=== PATIENT | female | born 1955 | race Caucasian/White ===

== ENCOUNTER 2016-08-04 22:10 | Inpatient (IN) | payer MEDICAID ==
[~2016-08-04] VITALS: Ht 154.9 cm; Wt 62.8 kg
[2016-08-04] MEDS ORDERED: DEXTROSE (50%) 50ML SYRG IV PRN (22:45)
[2016-08-04] MEDS ORDERED: CLOPIDOGREL BISULFATE 75 MG TAB PO ONE (22:45)
[2016-08-04] MEDS ORDERED: MORPHINE SULF INJ 2 MG/ML SYRINGE 1ML IV PRN (22:45)
[2016-08-04] MEDS ORDERED: HYDROmorphone HCL 2 MG/ML VL IV PRN (22:45)
[2016-08-04] MEDS ORDERED: D5W/SOD CHL 0.45% 1,000 ML IV SCH (22:45)
[2016-08-04] MEDS ORDERED: NITROGLYCERIN 0.4 MG SL TAB SL PRN (22:45)
[2016-08-04 23:00] VITALS: BP 99/63
[2016-08-04 23:56] LABS: Urine RBC None Seen /hpf (0 - 4)
[2016-08-05 00:08] LABS: Urine Bilirubin Negative (Negative); Urine Blood Negative /uL (Negative); Urine Color Colorless (Yellow); Urine Glucose Normal (Normal); Urine Ketone Negative (Negative); Urine Nitrite Negative (Negative); Urine Squamous Epithelial Cell FEW /hpf (<5); Urine Urobilinogen Normal (Negative)
[2016-08-05] MEDS ORDERED: FENO145T20 PO (00:27)
[2016-08-05] MEDS ORDERED: NITR0.4S29 SL (00:27)
[2016-08-05] MEDS ORDERED: LOSA100T27 PO (00:27)
[2016-08-05] MEDS ORDERED: METF-314 PO (00:27)
[2016-08-05 05:19] VITALS: BP 134/69
[2016-08-05] MEDS: ACCU-CHEK COMFORT CURVE STRIP VI SCH ×4 (05:47→21:42)
[2016-08-05] MEDS: InsuLIN REG 1unit/0.01ml Soln (100units/ml) SC SCH ×4 (05:49→21:51)
[2016-08-05 06:04] LABS: INR 0.94 (0.9-1.15); Prothrombin Time 9.7 sec (9.37-12.3)
[2016-08-05 06:09] LABS: Basophils # (auto) 0 uL; Basophils % (auto) 0.5 % (0.0-2.0); Calcium 8.8 mg/dL (8.5-10.1); Eosinophils # (auto) 0.2 uL; Hematocrit 38.1 % (36.0-46.0); Hemoglobin 12.4 g/dL (12.2-16.2); Lymphocytes # (auto) 2.1 uL; Mean Corpuscular Hemoglobin 29.5 pg (28.0-32.0); Mean Corpuscular Hgb Conc. 32.4 g/dL (32.0-36.0); Monocytes # (auto) 0.8 uL; Monocytes % (auto) 9.7 % (0.0-12.0); Neutrophils # (auto) 5.1 uL; Neutrophils % (auto) 62.8 % (37.0-80.0); Platelet Count (auto) 265 10^3/uL (140-450); Potassium 3.9 mmol/L (3.5-5.1); Red Cell Distribution Width 12.5 % (11.6-16.0); White Blood Cell 8.2 10^3/uL (4.4-10.8)
[2016-08-05] MEDS: metFORMIN HYDROCHLORIDE 500 MG TAB PO SCH ×2 (06:18→17:24)
[2016-08-05] MEDS: LOSARTAN POTASSIUM 50 MG TAB PO SCH (09:40)
[2016-08-05] MEDS: METOPROLOL TARTRATE 25 MG TAB PO SCH ×2 (09:58→21:41)
[2016-08-05] MEDS: ENOXAPARIN SOD 60 MG/0.6 ML SYRINGE SC SCH ×2 (10:00→21:40)
[2016-08-05] MEDS: ASPirin-EC 325mg tab PO SCH (10:00)
[2016-08-05] MEDS ORDERED: LIDOCAINE 2%HCL (LOCAL ANESTH.) INJ 20ML MDV ONE (10:00)
[2016-08-05] MEDS ORDERED: IODIXANOL 320MG/ML 100ML BTL IV ONE ×2 (10:01→15:40)
[2016-08-05] MEDS ORDERED: MIDAZOLAM HCL 1MG/1ML-2 ML VIAL ONE (13:37)
[2016-08-05] MEDS ORDERED: SODIUM CHL 0.9% 0 ML ONE (13:38)
[2016-08-05] MEDS ORDERED: fentaNYL CITRATE 100 MCG/2 ML VL ONE (13:38)
[2016-08-05] MEDS ORDERED: ANGIOMAX 250 MG VIAL IV ONE ×2 (13:39→15:35)
[2016-08-05] MEDS ORDERED: IOHEXOL 350 MG/ML 100ML IJ ONE (15:06)
[2016-08-05] MEDS ORDERED: SODIUM CHL 0.9% 50 ML ONE ×2 (15:35)
[2016-08-05] MEDS ORDERED: EPTIFIBATIDE DRIP(0.75MG/ML) 0 ML IV ONE (15:56)
[2016-08-05] MEDS ORDERED: EPTIFIBATIDE INJ (2MG/ML) 10ML VIAL IV ONE (15:56)
[2016-08-05] MEDS ORDERED: PRASUGREL HCL 10 MG TAB ONE (15:58)
[2016-08-05] MEDS ORDERED: ONDANSETRON HCL 4 MG/2 ML VIAL ONE (16:06)
[2016-08-05] MEDS ORDERED: CLOPIDOGREL 300 MG TAB ONE (16:25)
[2016-08-05] MEDS ORDERED: ONDANSETRON HCL 4 MG/2 ML VIAL IV PRN (17:15)
[2016-08-05] MEDS ORDERED: CLOPIDOGREL 300 MG TAB PO ONE ×3 (17:15→18:30)
[2016-08-05] MEDS ORDERED: LABETALOL HCL 5 MG/ML 4ML SYRINGE IV PRN ×2 (18:00→21:00)
[2016-08-05] MEDS: HYDROcodone-ACET 5/325MG TAB PO PRN (18:05)
[2016-08-05] MEDS ORDERED: ACETAMINOPHEN 325 MG TAB PO PRN (21:00)
[2016-08-05 21:06] VITALS: BP 110/64
[2016-08-05] MEDS: SODIUM CHLORIDE 0.9% 1,000 ML IV SCH (21:33)
[2016-08-05] MEDS: ATORVASTATIN 20 MG TAB PO SCH (21:40)
[2016-08-05] MEDS: FAMOTIDINE (10MG/ML) 2ML VL IV SCH (21:41)
[2016-08-06 05:34] VITALS: BP 110/66
[2016-08-06 05:54] LABS: Potassium 4.1 mmol/L (3.5-5.1)
[2016-08-06 06:07] LABS: BUN/Creatinine Ratio 24.1; Calcium 8.4 mg/dL (8.5-10.1)
[2016-08-06] MEDS: ACCU-CHEK COMFORT CURVE STRIP VI SCH ×4 (06:31→21:46)
[2016-08-06] MEDS: metFORMIN HYDROCHLORIDE 500 MG TAB PO SCH (06:31)
[2016-08-06] MEDS: InsuLIN REG 1unit/0.01ml Soln (100units/ml) SC SCH ×4 (06:36→21:55)
[2016-08-06 08:03] LABS: Basophils # (auto) 0 uL; Basophils % (auto) 0.3 % (0.0-2.0); Eosinophils # (auto) 0 uL; Eosinophils % (auto) 0.4 % (0.0-7.0); Hematocrit 28.7 % (36.0-46.0); Hemoglobin 9.6 g/dL (12.2-16.2); Lymphocytes % (auto) 14.6 % (10.0-50.0); Mean Corpuscular Hgb Conc. 33.3 g/dL (32.0-36.0); Mean Platelet Volume 9.3 fL (7.4-10.4); Monocytes # (auto) 0.6 uL; Monocytes % (auto) 8.4 % (0.0-12.0); Neutrophils # (auto) 5.4 uL; Neutrophils % (auto) 76.3 % (37.0-80.0); Platelet Count (auto) 225 10^3/uL (140-450); Red Cell Distribution Width 12.2 % (11.6-16.0); White Blood Cell 7.1 10^3/uL (4.4-10.8)
[2016-08-06 08:30] VITALS: BP 114/67
[2016-08-06] MEDS ORDERED: LABETALOL HCL 5 MG/ML 4ML SYRINGE IV PRN (08:30)
[2016-08-06 08:49] LABS: Cholesterol 116 mg/dL (<200); HDL Cholesterol 35 mg/dL (40-59); LDL Cholesterol 71 mg/dL (<100); Triglycerides 144 mg/dL (<150)
[2016-08-06] MEDS: CLOPIDOGREL BISULFATE 75 MG TAB PO SCH (09:40)
[2016-08-06] MEDS: ASPirin-EC 325mg tab PO SCH (09:40)
[2016-08-06] MEDS: ENOXAPARIN SOD 60 MG/0.6 ML SYRINGE SC SCH ×2 (09:40→21:45)
[2016-08-06] MEDS: FAMOTIDINE (10MG/ML) 2ML VL IV SCH ×2 (09:41→21:45)
[2016-08-06] MEDS: LOSARTAN POTASSIUM 50 MG TAB PO SCH (09:51)
[2016-08-06] MEDS: METOPROLOL TARTRATE 25 MG TAB PO SCH ×2 (09:51→21:46)
[2016-08-06] MEDS: SODIUM CHLORIDE 0.9% 1,000 ML IV SCH (11:44)
[2016-08-06 13:00] VITALS: BP 123/67
[2016-08-06 16:25] VITALS: BP 123/66
[2016-08-06] MEDS: ATORVASTATIN 20 MG TAB PO SCH (21:45)
[2016-08-06 23:03] VITALS: BP 113/61
[2016-08-07 05:19] VITALS: BP 110/57
[2016-08-07] MEDS: ACCU-CHEK COMFORT CURVE STRIP VI SCH ×4 (06:30→21:41)
[2016-08-07] MEDS: SODIUM CHLORIDE 0.9% 1,000 ML IV SCH ×2 (06:30→23:56)
[2016-08-07] MEDS: InsuLIN REG 1unit/0.01ml Soln (100units/ml) SC SCH ×4 (06:32→22:00)
[2016-08-07 09:00] VITALS: BP 107/58
[2016-08-07] MEDS: ASPirin-EC 325mg tab PO SCH (10:00)
[2016-08-07] MEDS: ACETAMINOPHEN 500 MG TAB PO PRN (10:47)
[2016-08-07] MEDS: FAMOTIDINE (10MG/ML) 2ML VL IV SCH ×2 (10:48→21:40)
[2016-08-07] MEDS: LOSARTAN POTASSIUM 50 MG TAB PO SCH (10:48)
[2016-08-07] MEDS: CLOPIDOGREL BISULFATE 75 MG TAB PO SCH (10:49)
[2016-08-07] MEDS: METOPROLOL TARTRATE 25 MG TAB PO SCH ×2 (10:49→21:40)
[2016-08-07] MEDS: ENOXAPARIN SOD 60 MG/0.6 ML SYRINGE SC SCH ×2 (10:50→21:40)
[2016-08-07 13:00] VITALS: BP 118/73
[2016-08-07 14:03] LABS: Basophils # (auto) 0 uL; Basophils % (auto) 0.7 % (0.0-2.0); DEFINITIVE VIEW TRANSMISSION; Eosinophils # (auto) 0.1 uL; Eosinophils % (auto) 2.4 % (0.0-7.0); Hematocrit 25.2 % (36.0-46.0); Hemoglobin 8.4 g/dL (12.2-16.2); Lymphocytes # (auto) 1.4 uL; Lymphocytes % (auto) 27.7 % (10.0-50.0); Mean Corpuscular Hgb Conc. 33.4 g/dL (32.0-36.0); Mean Corpuscular Volume 89.7 fL (80.0-100.0); Mean Platelet Volume 9.1 fL (7.4-10.4); Monocytes # (auto) 0.7 uL; Monocytes % (auto) 13.1 % (0.0-12.0); Neutrophils # (auto) 2.8 uL; Neutrophils % (auto) 56.1 % (37.0-80.0); Platelet Count (auto) 211 10^3/uL (140-450); Red Cell Distribution Width 11.9 % (11.6-16.0); White Blood Cell 5.1 10^3/uL (4.4-10.8)
[2016-08-07 14:08] LABS: BUN/Creatinine Ratio 17.2; Calcium 8.8 mg/dL (8.5-10.1); Potassium 3.8 mmol/L (3.5-5.1)
[2016-08-07 17:04] VITALS: BP 103/60
[2016-08-07] MEDS ORDERED: metFORMIN HYDROCHLORIDE 500 MG TAB PO SCH (18:00)
[2016-08-07] MEDS: HYDROcodone-ACET 5/325MG TAB PO PRN (20:21)
[2016-08-07 21:36] VITALS: BP 111/72
[2016-08-07] MEDS: ATORVASTATIN 20 MG TAB PO SCH (21:40)
[2016-08-08] VITALS (7 sets, daily range): BP systolic 110–122; BP diastolic 59–72
[2016-08-08] MEDS: ACCU-CHEK COMFORT CURVE STRIP VI SCH ×4 (06:34→21:29)
[2016-08-08] MEDS: InsuLIN REG 1unit/0.01ml Soln (100units/ml) SC SCH ×4 (06:42→22:00)
[2016-08-08] MEDS: FAMOTIDINE (10MG/ML) 2ML VL IV SCH ×2 (09:58→21:27)
[2016-08-08] MEDS: ENOXAPARIN SOD 60 MG/0.6 ML SYRINGE SC SCH ×2 (09:58→21:28)
[2016-08-08] MEDS: LOSARTAN POTASSIUM 50 MG TAB PO SCH (09:59)
[2016-08-08] MEDS: CLOPIDOGREL BISULFATE 75 MG TAB PO SCH (09:59)
[2016-08-08] MEDS: ASPirin-EC 325mg tab PO SCH (09:59)
[2016-08-08] MEDS: METOPROLOL TARTRATE 25 MG TAB PO SCH ×2 (10:00→21:28)
[2016-08-08] MEDS: HYDROcodone-ACET 5/325MG TAB PO PRN (19:48)
[2016-08-08] MEDS: ATORVASTATIN 20 MG TAB PO SCH (21:27)
[2016-08-08] MEDS: SODIUM CHLOR 0.9% PF (SALINE LOCK) 10ML VIAL IV SCH (21:27)
[2016-08-09 05:00] VITALS: BP 126/80
[2016-08-09 05:24] LABS: Basophils # (auto) 0 uL; Eosinophils # (auto) 0.2 uL; Hematocrit 27.2 % (36.0-46.0); Hemoglobin 9.1 g/dL (12.2-16.2); White Blood Cell 6.1 10^3/uL (4.4-10.8)
[2016-08-09 05:31] LABS: BUN/Creatinine Ratio 22.4; Calcium 8.9 mg/dL (8.5-10.1); Potassium 4.1 mmol/L (3.5-5.1)
[2016-08-09] MEDS: SODIUM CHLOR 0.9% PF (SALINE LOCK) 10ML VIAL IV SCH ×3 (05:40→21:39)
[2016-08-09 05:57] LABS: Basophils % (auto) 0.5 % (0.0-2.0); Eosinophils % (auto) 2.6 % (0.0-7.0); Lymphocytes # (auto) 1.5 uL; Lymphocytes % (auto) 25.1 % (10.0-50.0); Mean Corpuscular Hemoglobin 30.2 pg (28.0-32.0); Mean Corpuscular Hgb Conc. 33.6 g/dL (32.0-36.0); Mean Corpuscular Volume 89.9 fL (80.0-100.0); Mean Platelet Volume 9.2 fL (7.4-10.4); Monocytes # (auto) 0.6 uL; Neutrophils # (auto) 3.8 uL; Neutrophils % (auto) 61.8 % (37.0-80.0); Platelet Count (auto) 274 10^3/uL (140-450); Red Cell Distribution Width 12.3 % (11.6-16.0)
[2016-08-09] MEDS: ACCU-CHEK COMFORT CURVE STRIP VI SCH ×4 (06:30→21:40)
[2016-08-09] MEDS: InsuLIN REG 1unit/0.01ml Soln (100units/ml) SC SCH ×4 (06:31→21:48)
[2016-08-09 09:10] VITALS: BP 133/74
[2016-08-09] MEDS: FAMOTIDINE (10MG/ML) 2ML VL IV SCH ×2 (09:33→21:39)
[2016-08-09] MEDS: LOSARTAN POTASSIUM 50 MG TAB PO SCH (09:34)
[2016-08-09] MEDS: ASPirin-EC 325mg tab PO SCH (09:35)
[2016-08-09] MEDS: ENOXAPARIN SOD 60 MG/0.6 ML SYRINGE SC SCH ×2 (09:35→21:39)
[2016-08-09] MEDS: CLOPIDOGREL BISULFATE 75 MG TAB PO SCH (09:36)
[2016-08-09] MEDS: METOPROLOL TARTRATE 25 MG TAB PO SCH ×2 (09:36→21:40)
[2016-08-09 13:00] VITALS: BP 112/72
[2016-08-09 17:00] VITALS: BP 133/77
[2016-08-09 21:33] VITALS: BP 133/72
[2016-08-09] MEDS: ATORVASTATIN 20 MG TAB PO SCH (21:39)
[2016-08-09] MEDS: HYDROcodone-ACET 5/325MG TAB PO PRN (21:51)
[2016-08-10 04:53] VITALS: BP 118/84
[2016-08-10] MEDS: SODIUM CHLOR 0.9% PF (SALINE LOCK) 10ML VIAL IV SCH ×3 (06:12→21:38)
[2016-08-10] MEDS: ACCU-CHEK COMFORT CURVE STRIP VI SCH ×4 (06:12→21:29)
[2016-08-10] MEDS: InsuLIN REG 1unit/0.01ml Soln (100units/ml) SC SCH ×4 (06:19→21:46)
[2016-08-10 09:00] VITALS: BP 129/65
[2016-08-10] MEDS: FAMOTIDINE (10MG/ML) 2ML VL IV SCH ×2 (09:49→21:37)
[2016-08-10] MEDS: ASPirin-EC 325mg tab PO SCH (09:49)
[2016-08-10] MEDS: CLOPIDOGREL BISULFATE 75 MG TAB PO SCH (09:50)
[2016-08-10] MEDS: LOSARTAN POTASSIUM 50 MG TAB PO SCH (09:50)
[2016-08-10] MEDS: METOPROLOL TARTRATE 25 MG TAB PO SCH ×2 (09:51→21:38)
[2016-08-10] MEDS: ENOXAPARIN SOD 60 MG/0.6 ML SYRINGE SC SCH ×2 (09:55→21:38)
[2016-08-10 21:20] VITALS: BP 143/72
[2016-08-10] MEDS: ATORVASTATIN 20 MG TAB PO SCH (21:37)
[2016-08-11 04:57] VITALS: BP 139/72
[2016-08-11] MEDS: ACCU-CHEK COMFORT CURVE STRIP VI SCH ×4 (06:25→21:39)
[2016-08-11] MEDS: InsuLIN REG 1unit/0.01ml Soln (100units/ml) SC SCH ×4 (06:27→21:52)
[2016-08-11] MEDS: SODIUM CHLOR 0.9% PF (SALINE LOCK) 10ML VIAL IV SCH ×3 (06:29→21:39)
[2016-08-11 08:00] VITALS: BP 113/65
[2016-08-11] MEDS: FAMOTIDINE (10MG/ML) 2ML VL IV SCH ×2 (10:05→21:38)
[2016-08-11] MEDS: CLOPIDOGREL BISULFATE 75 MG TAB PO SCH (10:05)
[2016-08-11] MEDS: ENOXAPARIN SOD 60 MG/0.6 ML SYRINGE SC SCH ×2 (10:05→21:39)
[2016-08-11] MEDS: ASPirin-EC 325mg tab PO SCH (10:05)
[2016-08-11] MEDS: METOPROLOL TARTRATE 25 MG TAB PO SCH ×2 (10:06→21:39)
[2016-08-11] MEDS: LOSARTAN POTASSIUM 50 MG TAB PO SCH (10:06)
[2016-08-11 12:00] VITALS: BP 118/70
[2016-08-11] MEDS: ACETAMINOPHEN 500 MG TAB PO PRN (16:42)
[2016-08-11 17:00] VITALS: BP 111/62
[2016-08-11] MEDS: ATORVASTATIN 20 MG TAB PO SCH (21:48)
[2016-08-11 21:54] VITALS: BP 113/65
[2016-08-12 05:00] VITALS: BP 113/72
[2016-08-12] MEDS: ACCU-CHEK COMFORT CURVE STRIP VI SCH ×2 (06:21→11:30)
[2016-08-12] MEDS: SODIUM CHLOR 0.9% PF (SALINE LOCK) 10ML VIAL IV SCH (06:23)
[2016-08-12] MEDS: InsuLIN REG 1unit/0.01ml Soln (100units/ml) SC SCH ×2 (06:23→11:30)
[2016-08-12 09:00] VITALS: BP 114/63
[2016-08-12] MEDS: FAMOTIDINE (10MG/ML) 2ML VL IV SCH (11:50)
[2016-08-12] MEDS: LOSARTAN POTASSIUM 50 MG TAB PO SCH (11:51)
[2016-08-12] MEDS: CLOPIDOGREL BISULFATE 75 MG TAB PO SCH (11:52)
[2016-08-12] MEDS: ASPirin-EC 325mg tab PO SCH (11:52)
[2016-08-12] MEDS: METOPROLOL TARTRATE 25 MG TAB PO SCH (11:52)
[2016-08-12] MEDS: ENOXAPARIN SOD 60 MG/0.6 ML SYRINGE SC SCH (11:53)
[2016-08-12 13:19] VITALS: BP 111/64
== END 2016-08-12 14:05 | disposition home or self-care (01) | DRG 174 ==
LOC: TELE-CENTR 22:10
PROVIDERS: ADMIT Specialist; ATTEND Specialist
PROC: 027036Z Dilation of Coronary Artery, One Artery with Three Drug-eluting Intraluminal Devices, Percutaneous Approach (ICD-10-PCS; principal; 2016-08-06)
PROC: 4A023N6 Measurement of Cardiac Sampling and Pressure, Right Heart, Percutaneous Approach (ICD-10-PCS; 2016-08-06)
PROC: B2101ZZ Fluoroscopy of Single Coronary Artery using Low Osmolar Contrast (ICD-10-PCS; 2016-08-06)
PROC: B41F1ZZ Fluoroscopy of Right Lower Extremity Arteries using Low Osmolar Contrast (ICD-10-PCS; 2016-08-06)
DX: I21.4 Non-ST elevation (NSTEMI) myocardial infarction (principal); I63.511 Cerebral infarction due to unspecified occlusion or stenosis of right middle cerebral artery; G81.94 Hemiplegia, unspecified affecting left nondominant side; I11.9 Hypertensive heart disease without heart failure; R41.4 Neurologic neglect syndrome; Z79.02 Long term (current) use of antithrombotics/antiplatelets; E11.9 Type 2 diabetes mellitus without complications; E78.5 Hyperlipidemia, unspecified; I25.10 Atherosclerotic heart disease of native coronary artery without angina pectoris; J44.9 Chronic obstructive pulmonary disease, unspecified; Z82.49 Family history of ischemic heart disease and other diseases of the circulatory system; Z71.89 Other specified counseling; F17.210 Nicotine dependence, cigarettes, uncomplicated; Z90.710 Acquired absence of both cervix and uterus; Z80.3 Family history of malignant neoplasm of breast; Z80.8 Family history of malignant neoplasm of other organs or systems
CPT/HCPCS: 92928; 92929; 93456; G0278; 36415; 70450; 71010; 80048; 80061; 81001; 82962; 85025; 85049; 85610; 85730; 86850; 86900; 86901; 87081; 92523; 92610; 93005; 93306; 93886; 99152; C1874; C1887; J1815; J2250; J2405; J3490; Q9967